=== PATIENT | female | born 1965 | race Caucasian/White ===

== ENCOUNTER 2016-12-09 06:25 | Day surgery (SDC) | payer OTHER ==
[2016-12-09] MEDS ORDERED: NS 1,000 ML IV ONE (06:33)
[2016-12-09] MEDS ORDERED: MIDAZOLAM 2 MG/2 ML VIAL IVP ONE (06:33)
--- NOTE | 2016-12-09 06:50 | CPEKG ---
Heart Rate: 76 RR Interval: 789 P-R Interval: 136 QRSD Interval: 78 QT Interval: 404 QTC Interval: 455 P Stratford: 74 QRS Stratford: 71 T Wave Stratford: -22 EKG Severity - NORMAL ECG - EKG Impression: SINUS RHYTHM Electronically Signed By: Jermaine Leo 09-Dec-2016 10:53:21
[2016-12-09 07:18] LABS: % IMMATURE GRANULYOCYTES 0.2 % (0.0-1.1); ABSOLUTE IMMATURE GRANULOCYTES 0.01 10^3/uL (0.00-0.10); ADD DIFF? NO; ADD MORPH? NO; ADD SCAN? NO; ATYPICAL LYMPHOCYTE FLAG 10 (0-99); FRAGMENT RBC FLAG 0 (0-99); HEMATOCRIT 38.4 % (38.0-47.0); HEMOGLOBIN 13.1 g/dL (12.6-16.3); LEFT SHIFT FLG 0 (0-99); LIPEMIA HEMOLYSIS FLAG 90 (0-99); MEAN CELL HEMOGLOBIN CONCENTR. 34.1 g/dL (32.4-36.7); MEAN CELL VOLUME 93.7 fL (81.5-99.8); MEAN PLATELET VOLUME 10.5 fL (8.7-11.7); PLATELET CLUMPS FLAG 20 (0-99); PLATELET COUNT 227 10^3/uL (150-400)
[2016-12-09 07:28] LABS: INR 0.97 (0.83-1.16); PROTIME(PATIENT) 12.8 SEC (12.0-15.0)
[2016-12-09 07:29] LABS: APTT 27.7 SEC (23.0-38.0)
[2016-12-09] MEDS ORDERED: LIDOCAINE 1% 300 MG/30 ML SDV ONE (07:29)
[2016-12-09] MEDS ORDERED: HEPARIN 10,000 UNIT/10 ML MDV ONE (07:29)
[2016-12-09] MEDS ORDERED: BUPIVACAINE 0.5% 30 ML SDV ONE (07:30)
[2016-12-09 07:34] LABS: ANION GAP 13 mEq/L (8-16); CALCIUM 9.7 mg/dL (8.5-10.4); CARBON DIOXIDE 24 mEq/l (22-31); CHLORIDE 109 mEq/L (97-110); CREATININE 0.8 mg/dL (0.6-1.0); GLOMERULAR FILTRATION RATE > 60; GLUCOSE 92 mg/dL (70-100); MAGNESIUM 2.1 mg/dL (1.6-2.3); SODIUM 146 mEq/L (134-144)
[2016-12-09] MEDS ORDERED: PROPOFOL 200 MG/20 ML VIAL ONE (07:38)
[2016-12-09] MEDS ORDERED: fentaNYL 100 MCG/2 ML INJ ONE (07:38)
[2016-12-09] MEDS ORDERED: ROCURONIUM 50 MG/5 ML VIAL ONE (07:39)
--- NOTE | 2016-12-09 08:21 | PDANEPAE ---
ANE History of Present Illness 51 year old female w/ history of palpiltations presents for EP study and link device implantation. ANE Past Medical History - Cardiovascular History Hx Hypertension: No Hx Arrhythmias: No Hx Chest Pain: No Hx Coronary Artery / Peripheral Vascular Disease: Yes Hx CHF / Valvular Disease: No Hx Palpitations: Yes - Pulmonary History Hx COPD: No Hx Asthma/Reactive Airway Disease: No Hx Recent Upper Respiratory Infection: No Hx Oxygen in Use at Home: No Hx Sleep Apnea: No - Neurologic History Hx Cerebrovascular Accident: No Hx Seizures: No Hx Dementia: No - Endocrine History Hx Diabetes: No Hypothyroid: No Hyperthyroid: No Obesity: no - Renal History Hx Renal Disorders: No - Neurological & Psychiatric Hx Hx Neurological and Psychiatric Disorders: No - Chronic Pain History Chronic Pain: No ANE Review of Systems - Exercise capacity Exercise capacity: >=4 METS ANE Patient History - Allergies Allergies/Adverse Reactions: No Known Allergies Allergy (Unverified 12/09/16 07:59) - Home Medications Home Medications: Estradiol [Vivelle-Dot 0.075MG (*)] 0.075 mg TD SuWe@0800 12/09/16 [Last Taken 12/06/16] Herbals/Supplements -Info Only 1 ea PO DAILY 12/09/16 [Last Taken Unknown] Nebivolol HCl [Bystolic 5 mg (*)] 2.5 mg PO DAILY 12/09/16 [Last Taken 12/03/16] - Smoking Hx Smoking Status: Never smoked - Alcohol Use Alcohol Use: Rarely - Family Anes Hx Family Anes Hx: none ANE Labs/Vital Signs - Labs Result Diagrams: 12/09/16 06:50 12/09/16 06:50 - Vital Signs Height: 160 cm Weight: 52.2 kg ANE Physical Exam - Airway Mallampati Score: Class 1 Mouth exam: normal dental/mouth exam - Pulmonary Pulmonary: no respiratory distress, no rales or rhonchi, clear to auscultation - Cardiovascular Cardiovascular: regular rate and rhythym - ASA Status ASA Status: II ANE Anesthesia Plan Lines/Monitors: additional IV
[2016-12-09] MEDS ORDERED: ISOPROTERENOL HCL/D5W 0.2 MG/50 ML BAG IV ONE ×2 (09:06→10:18)
[2016-12-09] MEDS ORDERED: epHEDrine SULFATE 10 MG/ML SYR ONE (09:25)
[2016-12-09] MEDS ORDERED: PHENYLEPHRINE HCL 100 MCG/ML SYR ONE (09:26)
[2016-12-09] MEDS ORDERED: ONDANSETRON 4 MG/2 ML VIAL ONE (10:27)
[2016-12-09] MEDS ORDERED: ACETAMINOPHEN 325 MG TAB PO PRN (10:46)
[2016-12-09] MEDS ORDERED: ONDANSETRON 4 MG/2 ML VIAL IVP PRN (10:46)
--- NOTE | 2016-12-09 10:50 | EPPROC ---
Electrophysiology Procedure Note: DIAGNOSTIC ELECTROPHYSIOLOGIC STUDY Procedures performed: 1. Fluoroscopy 2. EP evaluation with RA/RV/LA pace/record, with arrhythmia induction 3. EP evaluation with RA/RV pace record, insert/reposition catheter, with arrhythmia induction 4. Programmed stimulation + pacing after IV drug 5. LINQ monitor implant INDICATION: Recurrent palpitations, not able to document with event monitoring PROCEDURE: Catheters & Anesthesia: The patient arrived in the Electrophysiology Laboratory in the fasting state. The right clavicular region, right groin, & left groin area were prepped & draped in the usual sterile manner. Dr. Ozzie Marrero administered anesthesia. Appropriate non-invasive blood pressure, pulse oximetry & end-tidal CO2 monitoring was established. All catheters were placed percutaneously using the modified Seldinger technique , and advanced into position under fluoroscopic guidance. One #6 Algerian hexapolar non-deflectable electrode catheter was inserted into the right atrial appendage via the left femoral vein (2mm spacing; except the proximal ring which was 25cm from the tip used for unipolar recordings). One #7 Algerian deflectable octapolar electrode catheter was advanced to the His-bundle position via the left femoral vein (2mm spacing). One #7 Algerian deflectable catheter with 10 pairs of electrodes was placed via the right femoral vein into the coronary sinus. Programmed stimulation was performed from the right atrium, right ventricle and coronary sinus (left atrium). Parahisian pacing demonstrated constant H-A interval with changing V-A intervals and stimulus-A intervals during capture and loss of capture of proximal RBB proving retrograde conduction over AV node. Heparin was administered to keep ACT > 200 seconds. No sustained reentrant tachycardia was induced during programmed stimulation at baseline or during graded doses of isoproterenol up to 4 mcg/min. Nonsustained right atrial tachycardia, 4 bts, CL 240 ms was induced x 1 with isoproterenol infusion. Single AV adriano echo beats were seen. No ablation was done. LINQ monitor was placed in the L parasternal area using standard technique. SN [id number]. Detection at HR <40 bpm >167 bpm pause > 3s. The catheters were removed. The patient was transferred to the cardiovascular holding area in stable condition. Vascular access sheaths were removed in the holding area. There were no apparent complications. Results: A. Spontaneous Intervals: SCL 840 ms AH 55 ms HV 40 ms B. Antegrade AV adriano function (decremental pacing) FPERP 370 ms WBB CL 360 ms C. Retrograde AV adriano function (decremental pacing) FPERP 300 ms WBB CL 290 ms CONCLUSIONS 1. Normal sinus and AV node function. 2. No evidence of accesory AV pathway presence. 3. No sustained arrhythmias induced. Nonsustained atrial tachycardia seen x 1 during procedure. No ablation performed. 4. LINQ monitor implanted. 5. No apparent complications. Patient Problems: Problems Problem Status Onset Palpitations Acute
[2016-12-09] MEDS ORDERED: ATROPINE SULFATE 1 MG/10 ML SYR ONE (11:03)
[2016-12-09] MEDS ORDERED: ESTRADIOL VIVELLE 0.075 MG PATCH TD SCH (13:00)
--- NOTE | 2016-12-09 14:45 | POSTANESTH ---
Post Anesthetic Evaluation Cardiovascular Status: Normal, Stable, Similar to Pre-Op Cond Respiratory Status: Normal, Stable Level of Consciousness/Mental Status: Can Participate in Eval, Alert and Oriented Pain Control: Adequate, Prn Tx Ordered Nausea/Vomiting Control: Adequate, Prn Tx Ordered (Patient very thankful for care and happy with her anesthetic.) Complications Possibly Related to Anesthesia: None Noted
[2016-12-10] MEDS ORDERED: NEBIVOLOL HCL 5 MG TAB PO SCH (09:00)
== END 2016-12-09 17:44 | disposition home or self-care (01) ==
LOC: FSGY 06:25 → EDBD 08:30 → FCATH 17:44
PROVIDERS: ATTEND Internal Medicine Cardiovascular Disease
PROC: 5A1213Z Performance of Cardiac Pacing, Intermittent (ICD-10-PCS; principal; 2016-12-09)
PROC: 0JH602Z Insertion of Monitoring Device into Chest Subcutaneous Tissue and Fascia, Open Approach (ICD-10-PCS; principal; 2016-12-09)
PROC: 4A023FZ Measurement of Cardiac Rhythm, Percutaneous Approach (ICD-10-PCS; principal; 2016-12-09)
DX: R00.2 Palpitations (principal); Q23.1 Congenital insufficiency of aortic valve; I71.2 Thoracic aortic aneurysm, without rupture
CPT/HCPCS: 33282; 93005; 93620; 93621; 93623; C1730; C1731; C1764; J0461; J1644; J2250; J2370; J2405; J2704; J3010

== ENCOUNTER → 2016-12-11 | Outpatient (CLI) | payer OTHER | LOC: FIMAGING 15:45 | PROVIDERS: ATTEND Nurse Practitioner Adult Health | DX: M25.461 Effusion, right knee (principal); M79.606 Pain in leg, unspecified ==

== ENCOUNTER 2016-12-19 20:01 | Observation (INO) | payer OTHER ==
--- NOTE | 2016-12-19 20:13 | EDPHY ---
H & P Stated Complaint: intermittent stabbing chest pain that takes breath away Time Seen by Provider: 12/19/16 20:12 - Personal History LMP (Females 10-55): Post Menopausal Current Tetanus/Diphtheria Vaccine: Unsure - Medical/Surgical History Hx Asthma: No Hx Chronic Respiratory Disease: No Hx Diabetes: No Hx Cardiac Disease: Yes Hx Renal Disease: No Hx Cirrhosis: No Hx Alcoholism: No Hx HIV/AIDS: No Hx Splenectomy or Spleen Trauma: No Other PMH: PMHx: SVT, bicuspid valve (tricuspid only has two leaflets). PSHx: tonsillectomy, cholecystectomy, complete hysterectomy, EP study done 12/2016 - Social History Smoking Status: Never smoked Constitutional: Initial Vital Signs Temperature (C) 36.8 C 12/19/16 20:04 Heart Rate 70 12/19/16 20:04 Respiratory Rate 16 12/19/16 20:04 Blood Pressure 113/72 12/19/16 20:04 O2 Sat (%) 98 12/19/16 20:04 O2 Delivery Mode Room Air Allergies/Adverse Reactions: No Known Allergies Allergy (Unverified 12/09/16 07:59) Home Medications: Medication Instructions Recorded Losartan Potassium 12/19/16 Medical Decision Making ED Course/Re-evaluation: CHIEF COMPLAINT: Chest Pain, Shortness of Breath HISTORY OF PRESENT ILLNESS: Patient is a 51 y/o female arriving with her , complaining of intermittent sharp chest pain onset today. One week ago she had an electrophysiology study with Dr. Leo to evaluate her SVT. They did not perform an ablation, but they did implant a LINQ monitor. She was evaluated at [facility] today for the same symptoms, and her reports her EKG, Chest X-ray, and labs were normal. She has associated dyspnea and feels as if she "cannot catch her breath". She also has associated heart palpitations. Her pain is not reproducible with movement or palpation. She has not recently traveled or has been sitting for long periods of time. REVIEW OF SYSTEMS: A 10 point review of systems was performed and is negative with the exception of the elements mentioned in the history of present illness. PHYSICAL EXAM: HR, BP, O2 Sat, RR. Temp noted General Appearance: Alert, well hydrated, appropriate, and non-toxic appearing. Head: Atraumatic without scalp tenderness or obvious injury Eyes: Pupils equal, round, reactive to light and accommodation, EOMI, no trauma , no injection. Nose: Atraumatic, no rhinorrhea, clear. Throat: Mucus membranes moist. Neck: Supple, no lymphadenopathy. Respiratory: No retractions, no distress, no wheezes, and no accessory muscle use. Lungs are clear to auscultation bilaterally. Cardiovascular: Regular rate and rhythm, no murmurs, rubs, or gallops. Good capillary refill all extremities. Gastrointestinal: Abdomen is soft, nontender, non-distended, no masses, no rebound, no guarding, no peritoneal signs. Musculoskeletal: Acute chest pain. Normal active ROM of all extremities, atraumatic. Neurological: Alert, appropriate, and interactive. Nonfocal neuro exam. Skin: No rashes, good turgor, no nodules on palpation. Past medical history: SVT Past surgical history: Cardiac Catheterization to evaluate SVT (12/09/16) Family history: Mother had valve problems, Social history: at bedside. Lives in [place], [facility]. Prior medical records reviewed including cardiac procedure note from 12/09/16 DIAGNOSTICS/PROCEDURES/CRITICAL CARE TIME: The 12 lead EKG was interpreted by myself. Sinus rhythm rate 72, similar to previous EKG (12/09/16). See hard copy and/or "tracemaster" electronic copy for interpretation. DIFFERENTIAL DIAGNOSIS: The differential diagnosis for the patient's chest pain included but was not limited to myocardial ischemia, pulmonary embolus, chest wall pain, pleural inflammation, and pulmonary infectious causes. MEDICAL DECISION MAKING: The patient is a 51 y/o female presenting with intermittent non reproducible chest pain over the last 5 hours. Workup today at [facility] was negative per her . Her physical exam was unremarkable. Her symptoms could be related to recurrent SVT or other cardiac etiology. Plan for standard chest pain workup including IV, EKG, labs. We will not repeat chest X-ray. We will attempt to obtain records from [facility] for comparison. Reassessed patient and discussed her workup. Labs and EKG are unremarkable. Her symptoms could be related to her new implanted monitor and that this is a musculoskeletal issue rather than a cardiovascular one. I have explained to the patient that she has the option to be admitted to the hospital to be monitored or she could be followed up as an outpatient. Given the available information, she would like to be admitted. 2141: Still have not recieved records from [facility]. 2213: Spoke with hospitalist service, Dr. Recinos accepts admission 2221: Consulted with Dr. Cooney, Cardiology. He will follow patient's admission. - Data Points Laboratory Results: Laboratory Results 12/19/16 20:30 12/19/16 20:30 12/19/16 12/19/16 12/19/16 20:30 20:30 20:30 WBC 7.83 10^3/uL 10^3/uL (3.80-9.50) RBC 4.18 10^6/uL 10^6/uL (4.18-5.33) Hgb 13.5 g/dL g/dL (12.6-16.3) Hct 38.1 % % (38.0-47.0) MCV 91.1 fL fL (81.5-99.8) MCH 32.3 pg pg (27.9-34.1) MCHC 35.4 g/dL g/dL (32.4-36.7) RDW 11.9 % % (11.5-15.2) Plt Count 273 10^3/uL 10^3/uL (150-400) MPV 10.8 fL fL (8.7-11.7) Neut % (Auto) 60.2 % % (39.3-74.2) Lymph % (Auto) 31.2 % % (15.0-45.0) Poinsett % (Auto) 7.5 % % (4.5-13.0) Eos % (Auto) 0.5 % L % (0.6-7.6) Baso % (Auto) 0.3 % % (0.3-1.7) Nucleat RBC Rel Count 0.0 % % (0.0-0.2) Absolute Neuts (auto) 4.72 10^3/uL 10^3/uL (1.70-6.50) Absolute Lymphs (auto) 2.44 10^3/uL 10^3/uL (1.00-3.00) Absolute Monos (auto) 0.59 10^3/uL 10^3/uL (0.30-0.80) Absolute Eos (auto) 0.04 10^3/uL 10^3/uL (0.03-0.40) Absolute Basos (auto) 0.02 10^3/uL 10^3/uL (0.02-0.10) Absolute Nucleated RBC 0.00 10^3/uL 10^3/uL (0-0.01) Immature Gran % 0.3 % % (0.0-1.1) Immature Gran # 0.02 10^3/uL 10^3/uL (0.00-0.10) D-Dimer < 0.27 ug/mLFEU ug/mLFEU (0.00-0.50) Sodium 139 mEq/L mEq/L (134-144) Potassium 4.0 mEq/L mEq/L (3.5-5.2) Chloride 104 mEq/L mEq/L (97-110) Carbon Dioxide 24 mEq/l mEq/l (22-31) Anion Gap 11 mEq/L mEq/L (8-16) BUN 13 mg/dL mg/dL (7-23) Creatinine 0.7 mg/dL mg/dL (0.6-1.0) Estimated GFR > 60 Glucose 99 mg/dL mg/dL (70-100) Calcium 9.6 mg/dL mg/dL (8.5-10.4) Troponin I < 0.012 ng/mL ng/mL (0-0.034) Departure - Departure Disposition: [facility] Inpatient Acute Clinical Impression: Atypical chest pain Condition: Fair Referrals: Nicol Frank MD [Primary Care Provider] - As per Instructions Gómez Cooney MD [Medical Doctor] - As per Instructions
--- NOTE | 2016-12-19 20:20 | CPEKG ---
Heart Rate: 72 RR Interval: 833 P-R Interval: 115 QRSD Interval: 74 QT Interval: 400 QTC Interval: 438 P Dewitt: 0 QRS Dewitt: 71 T Wave Dewitt: 38 EKG Severity - OTHERWISE NORMAL ECG - EKG Impression: SINUS RHYTHM EKG Impression: MINIMAL ST DEPRESSION, ANTEROLATERAL LEADS Electronically Signed By: Jermaine Leo 22-Dec-2016 15:33:50
[2016-12-19 21:24] LABS: % IMMATURE GRANULYOCYTES 0.3 % (0.0-1.1); ABSOLUTE IMMATURE GRANULOCYTES 0.02 10^3/uL (0.00-0.10); ADD DIFF? NO; ADD MORPH? NO; ADD SCAN? NO; ATYPICAL LYMPHOCYTE FLAG 0 (0-99); FRAGMENT RBC FLAG 0 (0-99); HEMATOCRIT 38.1 % (38.0-47.0); HEMOGLOBIN 13.5 g/dL (12.6-16.3); LEFT SHIFT FLG 0 (0-99); LIPEMIA HEMOLYSIS FLAG 90 (0-99); MEAN CELL HEMOGLOBIN 32.3 pg (27.9-34.1); MEAN CELL HEMOGLOBIN CONCENTR. 35.4 g/dL (32.4-36.7); MEAN CELL VOLUME 91.1 fL (81.5-99.8); MEAN PLATELET VOLUME 10.8 fL (8.7-11.7); PLATELET CLUMPS FLAG 0 (0-99); PLATELET COUNT 273 10^3/uL (150-400); RED BLOOD CELL COUNT 4.18 10^6/uL (4.18-5.33); RED CELL DISTRIBUTION WIDTH 11.9 % (11.5-15.2)
[2016-12-19 21:30] LABS: ANION GAP 11 mEq/L (8-16); CALCIUM 9.6 mg/dL (8.5-10.4); CARBON DIOXIDE 24 mEq/l (22-31); CHLORIDE 104 mEq/L (97-110); CREATININE 0.7 mg/dL (0.6-1.0); GLOMERULAR FILTRATION RATE > 60; GLUCOSE 99 mg/dL (70-100); SODIUM 139 mEq/L (134-144)
[2016-12-19 21:41] LABS: TROPONIN I < 0.012 ng/mL (0-0.034)
[2016-12-19] MEDS ORDERED: LORazepam 2 MG/ML INJ IVP ONE (21:42)
[2016-12-19] MEDS ORDERED: ACETAMINOPHEN 325 MG TAB PO PRN (22:54)
[2016-12-19] MEDS ORDERED: ONDANSETRON 4 MG/2 ML VIAL IVP PRN (22:54)
[2016-12-19] MEDS ORDERED: ONDANSETRON DISINTEGRATING 4 MG TAB PO PRN (22:54)
[2016-12-19] MEDS ORDERED: LORazepam 0.5 MG TAB PO PRN (22:56)
--- NOTE | 2016-12-20 00:11 | GHP ---
[f rep st] HISTORY AND PHYSICAL DATE OF ADMISSION: 12/19/2016 CHIEF COMPLAINT: Atypical chest pain. HISTORY OF PRESENT ILLNESS: A 51-year-old female with history of aortic aneurysm, bicuspid aortic valve, followed closely by [facility], who presented with atypical chest pain. At 2pm today, she developed left-sided chest pain described as electrical pain. "It took my breath away". No associated radiation, diaphoresis, nausea. Feels like prior episode of palpitations. LINQ recorder placed 12/09/[address] Leo She had a clinic appointment on the that demonstrated no arrhythmia. She went to [facility] this afternoon and had a chest x-ray, EKG that was negative and was sent home. Had recurrent chest pain this evening, so called Cardiology Clinic and they recommended that she come to the hospital. Denies any fevers, chills, or sweats. No strenuous activity. Went for a walk this morning. Has been staying hydrated. Denies increased stressors or anxiety. No recent travel. REVIEW OF SYSTEMS: I completed a 10-point review of systems, negative except as noted in HPI. PAST MEDICAL HISTORY: Aortic aneurysm, 4.3 x 4.3 cm, bicuspid AV. Two prior stress echo tests that were negative. Normal echocardiogram, October 2016, per review of Dr. Purvis's notes. PAST SURGICAL HISTORY: Hysterectomy, tonsillectomy, cholecystectomy. SOCIAL HISTORY: Lives in [place] with her . No alcohol, tobacco, or illicits. Stopped drinking caffeine and alcohol. Clerical work. FAMILY HISTORY: Brother with SVT. Sister with CVA and SVT. Mother with an NV. MEDICATIONS: see med reconciliation ALLERGIES: none PHYSICAL EXAM: VITAL SIGNS: Temperature afebrile, blood pressure 113/70, heart rate 60s to 70s, respirations 16, 98% on room air. GENERAL: Patient is lying in bed, no acute distress, thin. HEENT: PERRLA. EOMI. Moist mucous membranes. CV: Regular rate and rhythm. No murmurs, gallops, or rubs. No lower extremity edema. LUNGS: Clear to auscultation. No crackles or wheezing. ABDOMEN: Soft, nontender, nondistended. Positive bowel sounds. : No suprapubic tenderness. MUSCULOSKELETAL: 5/5 upper and lower extremity strength. NEURO: 2 through 12 intact. PSYCH: Alert and oriented x3. Mildly anxious. LABORATORY DATA: WBC 7, hemoglobin 13, hematocrit 38, platelets 273. D-dimer is negative. Sodium 139, potassium 4.2, chloride 104, carbon dioxide 24, anion gap 11, creatinine 0.7, glucose 99, calcium 9.6. Troponin less than 0.012. Echocardiogram personally reviewed by me. Normal sinus rhythm. Heart rate is in the 70s, currently 65 on telemetry. ASSESSMENT/PLAN: 1. Atypical chest pain: differential includes ACS, pulmonary embolism, arrhythmia, anxiety,versus musculoskeletal. Initial troponin and EKG negative for ischemia. D-dimer is negative. Low suspicion for acute coronary syndrome since has had recent negative stress echocardiogram. No evidence of supraventricular tachycardia on telemetry or EKG currently. Will monitor overnight. Repeat EKG and troponin. Dr. Cooney with Cardiology will evaluate patient in the morning. 2. History of palpitations/questionable SVT: Loop recorder in place. No evidence of arrhythmia per prior clinic note. Continue Bystolic. 3. Aortic aneurysm, stable at 4.3 cm, is followed closely by Cardiology. 4. Diet: Regular. 5. DVT prophylaxis: Low risk. 6. Disposition: Patient warrants observation admission given atypical chest pain. Monitor on telemetry and check serial troponin, EKG. /[id number]/MODL MTDD
[2016-12-20] MEDS: KETOROLAC 15 MG/1 ML SDV IVP SCH ×2 (03:19→06:34)
[2016-12-20 04:20] VITALS: RESP 16
[2016-12-20 08:24] VITALS: BP 92/67; PULSE 79; TEMP 97.5; O2SAT 99
[2016-12-20] MEDS ORDERED: PNEUMOCOCCAL 0.5ML VACCINE VIAL IM ONE ×2 (08:27→11:00)
--- NOTE | 2016-12-20 10:17 | GCON ---
[f rep st] CONSULTATION REFERRING PHYSICIAN: Shauna Recinos MD ADDITIONAL REFERRING: Lashonda Velazquez MD. CHIEF COMPLAINT: Atypical chest pain. HISTORY OF PRESENT ILLNESS: This is a 51-year-old female, with past history of aortic aneurysm 4.1 x 4.3 cm, bicuspid aortic valve without aortic stenosis, who has been evaluated by multiple physicians over the past 6 months including [facility], Cardiology now, [facility] with Dr. Leo as well as Dr. Purvis. The patient desired an EP study for palpitation and SVT; however the EP study was negative, and the patient had a LINQ implanted. On December 19, the patient was resting and experienced left-sided chest pain above the site of the LINQ implant. She mentioned this as an electrical shock that would last 2-3 minutes and then resolve on its own. This happened at rest and it concerned the patient. The patient mentioned that this took her breath away. There was no associated radiation, diaphoresis, nausea. No similar episode in the past. She went to [facility] in the afternoon, December 19, and a chest x-ray and EKG were normal. The patient was discharged to home. The patient had recurrent pain and hence came to the hospital. She denies any increased stress or anxiety. No recent travel. REVIEW OF SYSTEMS: Negative other than above. PAST MEDICAL HISTORY: Aortic aneurysm 4.3 x 4.3 cm, bicuspid aortic valve, two stress echoes that were negative, normal echocardiogram in October 2016. PAST SURGICAL HISTORY: Hysterectomy, tonsillectomy, cholecystectomy. SOCIAL HISTORY: Lives in [place] with her . No alcohol use, tobacco use, or illicit drug use. 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 Sister with CVA and SVT. Mother with [place]. MEDICATIONS: Estradiol, losartan, beta louis. ALLERGIES: None. PHYSICAL EXAM: VITAL SIGNS: Blood pressure of 113/70, pulse of 60, respiratory rate 16. GENERAL: Patient is lying in bed, with no acute distress. HEENT: Pupils equal, reacting to light accommodating. Moist mucous membrane. No thyromegaly. No JVD. No lymphadenopathy. CHEST: Good air entry bilaterally equal. No rales, rhonchi, rub. S1-S2 regular. No S3, no murmurs. ABDOMEN: Soft, nontender. No guarding or rigidity. Bowel sounds present. EXTREMITIES: No edema. 5/5 strength. NEURO: Grossly intact. PSYCH : Alert, oriented, mildly anxious. LABS: Evaluated and normal. Normal sinus rhythm. IMPRESSION AND PLAN: This is a 51-year-old with atypical chest pain. She mentions that the pain is more like an electrical shock over the LINQ implant, and this is very atypical for coronary artery disease-related pain; moreover she has had 2 negative stress tests. The pain does not appear to be related to possible aortic dissection since pulses are bounding all throughout. I have evaluated the patient's LINQ monitor and sinus tachycardia is noted, but no other arrhythmia noted on the loop monitor at current point in time. The patient mentions that Toradol has produced beneficial effect, hence I believe that the patient will benefit from NSAIDS. No further workup is needed at this point in time. Thank you for letting me participate in the patient's care. The patient will follow up with Dr. Leo. /[id number]/MODL MTDD
--- NOTE | 2016-12-20 14:27 | GDS ---
[f rep st] DISCHARGE SUMMARY CHIEF COMPLAINT: Atypical chest pain. HISTORY OF PRESENT ILLNESS: A 51-year-old female with a recent diagnosis of aortic aneurysm and bic uspid aortic valve, who presents with atypical chest pain. For details of patient's initial present ation, please see the history and physical dated 12/19/2016. CONSULTATIVE SERVICES: Include Cardiology. PROCEDURES: None. HOSPITAL COURSE: By issue: Atypical chest pain. The patient is quite anxious on examination. Has had multiple cardiac evaluations in the emergency department or clinics recently, including stress testing several months ago, which was negative. The patient was ruled out with serial troponins and EKGs, was seen by Cardiology and reassured that intermittent symptoms in her chest are not an indic ator that her aneurysm is rupturing. The patient has been encouraged to resume some physical activi ty, atrophic exercises to help with her anxiety and stress management. She is to continu e her home medications and follow in the outpatient setting with [facility]. MEDICATIONS AT THE TIME OF DISPOSITION: Please reference med rec printed on 12/20/2016. FOLLOWUP APPOINTMENTS: Include with Dr. Purvis in the next 2-4 weeks for followup. PENDING STUDIES: At the time of this dictation are none. TIME SPENT: I spent greater than 30 minutes in the planning and coordination of this discharge. /[id number]/MODL
== END 2016-12-20 11:11 | disposition home or self-care (01) ==
LOC: F2W 23:52
PROVIDERS: ADMIT Internal Medicine; ATTEND Hospitalist
DX: R07.89 Other chest pain (principal); I47.1 Supraventricular tachycardia; Z23 Encounter for immunization; I71.9 Aortic aneurysm of unspecified site, without rupture; Q23.1 Congenital insufficiency of aortic valve; Z82.49 Family history of ischemic heart disease and other diseases of the circulatory system
CPT/HCPCS: 90471; 93005; G0378; G0009; J1885; J2060

== ENCOUNTER 2017-07-27 07:16 | Day surgery (SDC) | payer OTHER ==
[2017-07-27] MEDS ORDERED: LIDOCAINE 1% 300 MG/30 ML SDV SC ONE (07:24)
--- NOTE | 2017-07-27 08:36 | PDHPUP ---
History & Physical Update H&P update statement: This history and physical update is based on an assessment of the patient which was completed after admission or registration (within 24 hours), but prior to the surgery/procedure. H&P update: H&P reviewed & patient examined, no change in patient's condition since H&P completed
[2017-07-27] MEDS ORDERED: DIAZEPAM 5 MG TAB PO ONE (08:37)
--- NOTE | 2017-07-27 08:37 | PDPROPOC ---
Sedation Plan of Care Sedation Plan of Care: vital signs stable, mental status noted, patient educated of risks, benefits, alternatives, patient can tolerate sedation ASA Classification: ASA 2 Planned drugs: fentanyl, midazolam Mallampati Score: Class 2 Mallampati Reference Image: Patient passed 3-3-2 rule?: Yes
[2017-07-27] MEDS ORDERED: DIAZEPAM 5 MG TAB ONE (08:38)
[2017-07-27] MEDS ORDERED: MIDAZOLAM 2 MG/2 ML VIAL ONE (08:49)
[2017-07-27] MEDS ORDERED: LIDOCAINE 1% 300 MG/30 ML SDV ONE (08:49)
[2017-07-27] MEDS ORDERED: fentaNYL 100 MCG/2 ML INJ ONE (08:49)
[2017-07-27] MEDS ORDERED: BUPIVACAINE 0.5% 30 ML SDV ONE (08:50)
[2017-07-27] MEDS ORDERED: LIDO/EPI 1% **for epidural** 30 ML SDV ONE (08:50)
--- NOTE | 2017-07-27 09:51 | POSTOPPROG ---
Post Op Note Date of Operation: 07/27/17 Surgeon: Vickie Purvis Anesthesia: IV Sedation Pre-op Diagnosis: LINQ device needs explant Post-op Diagnosis: LINQ explant Indication: no ongoing need for ambulatory monitoring Procedure: LINQ explant Inf/Abcess present in the surg proc area at time of surgery?: No EBL: Minimal Total fluids administered: 400 cc Complications: none Specimen(s): [employer]tronic LINQ device
--- NOTE | 2017-07-27 17:27 | CPIP ---
[f rep st] INVASIVE CARDIAC PROCEDURE DATE OF PROCEDURE: 07/27/2017 PROCEDURE PERFORMED: LINQ removal. INDICATIONS: No further need for long-term ambulatory arrhythmia monitoring. COMPLICATIONS: None. DESCRIPTION OF PROCEDURE: N.p.o. status was confirmed, informed consent obtained, and time-out perfo rmed. The patient was brought to the catheterization laboratory and prepped and draped in sterile fa shion. Adequate conscious sedation was achieved with Versed and fentanyl IV. 1% lidocaine was used for local anesthesia over the right parasternal area, 4th intercostal space, above the implanted LINQ device. A small incision was made, and the LINQ device was explanted. Incision was closed with 2 sutures and sterile dressing applied. The patient is stable. CONCLUSIONS: LINQ explant. Serial number [id number]. The patient will follow up for staple removal in our office as scheduled in 7 days. Postprocedure in structions were reviewed with patient and . /[id number]/MODL
== END 2017-07-27 11:13 | disposition home or self-care (01) ==
LOC: FCATH 07:16
PROVIDERS: ATTEND Internal Medicine Cardiovascular Disease
PROC: 0JPT02Z Removal of Monitoring Device from Trunk Subcutaneous Tissue and Fascia, Open Approach (ICD-10-PCS; principal; 2017-07-27)
DX: Z45.09 Encounter for adjustment and management of other cardiac device (principal); R94.31 Abnormal electrocardiogram [ECG] [EKG]; R00.2 Palpitations; I71.2 Thoracic aortic aneurysm, without rupture; Q23.1 Congenital insufficiency of aortic valve; Z82.49 Family history of ischemic heart disease and other diseases of the circulatory system
CPT/HCPCS: J2250; J3010